=== PATIENT | female | born 1940 | race Caucasian/White ===

== ENCOUNTER 2020-01-22 17:48 | Emergency (ER) | payer OTHER, MEDICARE ==
[~2020-01-22] VITALS: Ht 167.6 cm; Wt 98.0 kg
[2020-01-22] MEDS ORDERED: CITA20 PO (18:02)
[2020-01-22] MEDS ORDERED: ANASTROZOLE5 GM (18:03)
[2020-01-22] MEDS ORDERED: CENTRUM SILVER1 EAC2 PO (18:03)
[2020-01-22] MEDS ORDERED: Coq-1030 MG PO (18:03)
[2020-01-22] MEDS ORDERED: VITAMIN D325 MC3 PO (18:04)
[2020-01-22] MEDS ORDERED: CALCITRATE PO (18:06)
[2020-01-22] MEDS ORDERED: OMEP20ER PO (18:07)
== END 2020-01-22 20:13 | disposition home or self-care (01) ==
LOC: ER 17:48
DX: S62.337A Displaced fracture of neck of fifth metacarpal bone, left hand, initial encounter for closed fracture (principal); Z88.2 Allergy status to sulfonamides; Z88.8 Allergy status to other drugs, medicaments and biological substances; I10 Essential (primary) hypertension; Z79.899 Other long term (current) drug therapy; V49.9XXA Car occupant (driver) (passenger) injured in unspecified traffic accident, initial encounter
CPT/HCPCS: 73130; 99284-25; A9270-GY; L3917